=== PATIENT | male | born 1975 | race Caucasian/White ===

== ENCOUNTER 2020-11-02 14:32 | Emergency (ER) | payer BC, SELFPAY ==
[2020-11-02 14:43] VITALS: BP 136/87; PULSE 89; RESP 18; TEMP 36.8; O2SAT 100; BMI 21.2
--- NOTE | 2020-11-02 15:57 | CTR_ITS ---
PROCEDURE INFORMATION: Exam: CT Head Without Contrast Exam date and time: 11/02/2020 5:32 PM Age: 45 years old Clinical indication: Injury or trauma; Blunt trauma (contusions or hematomas); Injury details: Fall. 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 +loc; Additional info: Closed head injury TECHNIQUE: Imaging protocol: Computed tomography of the head without contrast. Radiation optimization: All CT scans at this facility use at least one of these dose optimization techniques: automated exposure control; mA and/or kV adjustment per patient size (includes targeted exams where dose is matched to clinical indication); or iterative reconstruction. COMPARISON: No relevant prior studies available. RADIATION DOSE METRICS: Total DLP (mGy-cm): 828.35 FINDINGS: Brain: Normal. No hemorrhage. Unremarkable white matter. No mass effect. Cerebral ventricles: No ventriculomegaly. Bones/joints: Unremarkable. No acute fracture. Paranasal sinuses: Visualized sinuses are unremarkable. No fluid levels. Mastoid air cells: Visualized mastoid air cells are well aerated. Soft tissues: Focal left superior scalp hematoma. CT/CT head wo con* [id number] IMPRESSION: Negative for intracranial injury. Radiation Dose CTDIVOL = (mGy): DLP = 828.35 (mGy-cm)
--- NOTE | 2020-11-02 16:09 | W.ED.SEIZURE ---
HPI - Seizure General: Chief Complaint: Seizure Stated Complaint: SEIZURE PRIOR TO ARRIVAL Time Seen by Provider: 11/02/20 15:56 History of Present Illness: HPI Narrative: 45-year-old male presents emergency room with complaint of a seizure. He stumbled twisted his ankle and fell on the ground as he fell on the ground he hit the back of his head on a piece of wood. His son was a bystander and said he had 2 seizures lasting somewhere between 1 to 3 minutes. He did bite the inside of his mouth he has no known history of previous seizures. He has been taking promethazine recently. No vomiting since this episode he does have a mild headache. MD complaint: possible seizure Onset (ago): hour(s) Description of Episode: loss of consciousness and tonic-clonic movement Witnessed: Yes - by Bystander Trauma: Yes Seizure History: No Place: Outdoors Possible Precipitating Event: head injury Associated symptoms: Deny chest pain, chills, confusion, cough, diaphoresis, fever(s), anorexia, malaise, rash, short of breath, syncope or weakness Treatments prior to arrival: none Review of Systems Const: Denies: fever(s), chills, malaise or diaphoresis ENMT: Denies: throat pain, ear or mastoid pain, nasal discharge or nasal congestion Card: Denies: chest pain or syncope Resp: Denies: dyspnea, productive cough or non-productive cough GI: Denies: abdominal pain, nausea, vomiting, hematemesis, coffee ground emesis, diarrhea, constipation, bloating, hematochezia or melena : Denies: flank pain, dysuria, urinary frequency or urinary urgency Skin/Breast: Denies: rash or pruritus Neuro: Denies: confusion Physical Exam Const: COMMON NORMALS: no acute distress GENERAL APPEARANCE: cooperative and comfortable ORIENTATION/CONSCIOUSNESS: Yes awake, Yes oriented to person, Yes oriented to place and Yes oriented to time HENMT: COMMON NORMALS: normocephalic, atraumatic, hearing grossly normal bilaterally, external ears normal, EAC's normal, TM's normal bilaterally, Normal nasal mucous membranes and turbinates present, moist oral mucous membranes and oropharynx normal HEAD & SCALP: normocephalic and atraumatic NOSE: Normal nasal mucous membranes and turbinates present EXTERNAL EAR: Yes external ears normal EXTERNAL AUDITORY CANAL: EAC's normal TYMPANIC MEMBRANE: TM's normal bilaterally Eye: COMMON NORMALS: Equal, round and reactive pupils present, EOMs intact bilaterally, conjunctivae normal and no scleral icterus CONJUNCTIVA: Yes conjunctivae normal PUPIL: Yes Equal, round and reactive pupils present Neck/C-Spine: COMMON NORMALS: no JVD Resp: COMMON NORMALS: normal respiratory effort, No retractions, No use of accessory muscles and clear to auscultation bilaterally AUSCULTATION: clear to auscultation bilaterally Cardio: COMMON NORMALS: no JVD, regular rate, regular rhythm and No murmurs present (Cardio) RATE: regular rate RHYTHM: regular rhythm GI: COMMON NORMALS: Soft to palpation and No hepatosplenomegaly present AUSCULTATION: Yes normoactive bowel sounds PALPATION: Yes Soft to palpation, No Tenderness to palpation present (GI), No Guarding due to palpation present (GI) and Yes No hepatosplenomegaly present Extremity: COMMON NORMALS: normal to inspection, capillary refill normal, no clubbing, cyanosis or edema, no calf tenderness and no pedal edema Neuro: SENSORIUM/ORIENTATION: Yes oriented to person, Yes oriented to place and Yes oriented to time Skin: COMMON NORMALS: no rashes or lesions noted GENERAL SKIN EXAM: no rashes or lesions noted Course Vital Signs: Vital signs: Vital Signs Temperature 98.3 F 11/02/20 14:43 Pulse Rate 89 11/02/20 14:43 Respiratory Rate 18 11/02/20 14:43 Blood Pressure 136/87 11/02/20 14:43 Pulse Oximetry 100 11/02/20 14:43 MDM - Seizure MDM Narrative: Medical decision making narrative: Suspect he may have had a vasovagal episode. Is possibly had a seizure after closed head injury is no history of seizures in the past we will go and discharge him home have him follow-up with his primary care physician. If he has any further symptoms return to the emergency room would require further work-up and referral to neurology. His sodium is a little bit on the low side.But he is asymptomatic of it at this time. If he were to have another seizure would consider starting antiseizure medications but in presence of a single episode we will hold off for now. Lab Data: Labs: Lab Results 11/02/20 11/02/20 11/02/20 Range/Units 15:58 15:58 18:00 WBC 9.2 (4.0-10.0) 10^3/ uL RBC 3.77 L (4.1-5.3) 10^6/u L Hgb 12.8 (11.7-16.6) g/dL Hct 37.0 L (42.0-52.0) % MCV 98.1 H (80-94) fL MCH 34.0 (28.0-34.0) pg MCHC 34.6 (30.0-36.0) g/dL RDW 12.6 (12.1-15.1) % Plt Count 187 (130-400) 10^3/c mm MPV 9.2 (7.4-10.4) fL Neut % (Auto) 78.8 % Lymph % (Auto) 8.8 % [place] % (Auto) 11.3 % Eos % (Auto) 0.0 % Baso % (Auto) 0.4 % Neut # (Auto) 7.28 (1.8-7.7) 10^3/u L Lymph # (Auto) 0.8 (0.8-4.8) 10^3/u L [place] # (Auto) 1.0 H (0.2-0.9) 10^3/u L Eos # (Auto) 0.0 (0.0-0.8) 10^3/u L Baso # (Auto) 0.0 (0.0-0.1) 10^3/u L Nucleated RBC % (a uto) 0 % Nucleated RBCs # 0.0 /100WBC Sodium 129 L (136-145) mmol/L Potassium 3.6 (3.5-5.1) mmol/L Chloride 88 L (98-107) mmol/L Carbon Dioxide 22 (22-29) mmol/L Anion Gap 22.6 H (5-19) BUN 5 L (6-20) mg/dL Creatinine 0.6 L (0.7-1.2) mg/dL GFR Calculation 145.0 H (90-130) mL/min Glucose 75 (65-115) mg/dL Calculated Osmolal ity 264 L (285-295) mOsm/k g Calcium 8.3 L (8.5-10.5) mg/dL Total Bilirubin 1.0 (0.15-1.2) mg/dL AST 151 H (0-40) U/L ALT 92 H (0-41) U/L Alkaline Phosphata se 57 (40-130) IU/L Total Protein 7.0 (6.6-8.7) g/dL Albumin 4.4 (3.5-5.2) g/dL Globulin 2.6 (1.3-4.6) g/dL Urine Color Dark yellow (Yellow) Urine Appearance Clear (CLEAR) Urine pH 5 (5-7) Ur Specific Gravit y 1.020 (1.005-1.030) Urine Protein 3+ H (Negative) Urine Glucose (UA) Norm (Normal) Urine Ketones 2+ H (Negative) Urine Blood 3+ H (Negative) Urine Nitrate Negative (Negative) Urine Bilirubin Neg (Negative) Urine Urobilinogen 1 H (Negative) mg/dL Ur Leukocyte [place] ase Negative (Negative) Urine RBC 0-4 H (0-2) /hpf Urine WBC 5-10 H (0-5) /hpf Ur Squamous Epith Cells 0-4 H (0-5) /hpf Amorphous Sediment Not Reportable Urine Bacteria Trace (NONE) /hpf Urine Mucus Trace /hpf Discharge Plan Discharge Patient Disposition: Home Clinical Impression: New onset seizure, Fall, Closed head injury Condition: Stable Prescriptions: No Action promethazine 25 mg tablet 25 mg PO Q4H PRN (Reason: Nausea And Vomiting) RF: 0 ibuprofen 200 mg Tablet 200 mg PO PRN RF: 0 levetiracetam 500 mg Tablet 500 mg PO Q12H Qty: 60 RF: 0 Thera 400 mcg Tablet 1 tab PO DAILY Qty: 30 RF: 0 Discharge Orders: Discharge ED (Routine); Ordered 11/02/20 Ordered By: Júnior Preciado Discharge Diet: Usual diet Discharge Activity: Increase activity as tolerated Patient Instructions: Opioid Safety Activity Restrictions/Additional Instructions: If you have any further symptoms return to the emergency room or follow-up with your primary care physician. 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
--- NOTE | 2020-11-02 16:10 | CTR_ITS ---
PROCEDURE INFORMATION: Exam: CT Cervical Spine Without Contrast Exam date and time: 11/02/2020 5:32 PM Age: 45 years old Clinical indication: Injury or trauma; Blunt trauma; Injury details: Fall x today. Pain; Additional info: Pain after fall TECHNIQUE: Imaging protocol: Computed tomography images of the cervical spine without contrast. Radiation optimization: All CT scans at this facility use at least one of these dose optimization techniques: automated exposure control; mA and/or kV adjustment per patient size (includes targeted exams where dose is matched to clinical indication); or iterative reconstruction. COMPARISON: No relevant prior studies available. RADIATION DOSE METRICS: Total DLP (mGy-cm): 436.72 FINDINGS: Vertebrae: No acute fracture. Normal alignment. C2-C3: No significant disc protrusion. No severe spinal canal stenosis. No significant neural foraminal narrowing. C3-C4: No significant disc protrusion. No severe spinal canal stenosis. No significant neural foraminal narrowing. C4-C5: No significant disc protrusion. No severe spinal canal stenosis. No significant neural foraminal narrowing. C5-C6: No significant disc protrusion. No severe spinal canal stenosis. No significant neural foraminal narrowing. C6-C7: No significant disc protrusion. No severe spinal canal stenosis. No significant neural foraminal narrowing. C7-T1: No significant disc protrusion. No severe spinal canal stenosis. No significant neural foraminal narrowing. Soft tissues: Unremarkable. Lungs: Lung apices are normal. CT/CT cervical spin wo con* [id number] IMPRESSION: No acute findings. Radiation Dose CTDIVOL = (mGy): DLP = 436.72 (mGy-cm)
[2020-11-02 16:15] LABS: Basophils % 0.4 %; Hemoglobin 12.8 g/dL (11.7-16.6); Lymphocytes # 0.8 10^3/uL (0.8-4.8); Lymphocytes % 8.8 %; Mean Corpuscular HGB Conc 34.6 g/dL (30.0-36.0); Mean Corpuscular Volume 98.1 fL (80-94); Mean Platelet Volume 9.2 fL (7.4-10.4); Monocytes % 11.3 %; Neutrophils # 7.28 10^3/uL (1.8-7.7); Neutrophils % 78.8 %; Nucleated Red Blood Cells % 0 %; Platelet Count 187 10^3/cmm (130-400); Red Blood Count 3.77 10^6/uL (4.1-5.3); Red Cell Distribution Width 12.6 % (12.1-15.1); White Blood Count 9.2 10^3/uL (4.0-10.0)
[2020-11-02 16:34] LABS: Alanine Aminotransferase 92 U/L (0-41); Albumin Level 4.4 g/dL (3.5-5.2); Alkaline Phosphatase 57 IU/L (40-130); Anion Gap 22.6 (5-19); Aspartate Amino Transferase 151 U/L (0-40); Blood Urea Nitrogen 5 mg/dL (6-20); Calcium 8.3 mg/dL (8.5-10.5); Carbon Dioxide 22 mmol/L (22-29); Chloride 88 mmol/L (98-107); Globulin 2.6 g/dL (1.3-4.6); Glucose 75 mg/dL (65-115); Osmolality Calculated 264 mOsm/kg (285-295); Potassium 3.6 mmol/L (3.5-5.1); Sodium 129 mmol/L (136-145)
[2020-11-02] MEDS: ibuprofen 800 mg tablet PO (16:55)
[2020-11-02 18:16] LABS: Add Urine Microscopic? YES; Bilirubin Urine Neg (Negative); Blood Urine 3+ (Negative); Glucose Urine UA Norm (Normal); Ketones Urine 2+ (Negative); Leukocyte Esterase Urine Negative (Negative); Nitrate Urine Negative (Negative); Protein Urine 3+ (Negative); Urine Appearance Clear (CLEAR); Urine Color Dark Yellow (Yellow); Urobilinogen Urine 1 mg/dL (Negative); pH Urine 5 (5-7)
[2020-11-02 18:17] LABS: Bacteria Urine TRACE /hpf; Mucus Urine TRACE /hpf; RBC Urine 0-4 /hpf (0-2); Squamous Epithelial Cell Urine 0-4 /hpf (0-5)
== END 2020-11-02 18:55 | disposition home or self-care (01) ==
PROVIDERS: Emergency Provider Family Medicine
DX: G40.89 Other seizures (principal); S09.8XXA Other specified injuries of head, initial encounter; W01.0XXA Fall on same level from slipping, tripping and stumbling without subsequent striking against object, initial encounter
CPT/HCPCS: 70450; 72125; 80053; 81001; 85025; 99283

== ENCOUNTER 2020-11-02 23:39 | Observation (INO) | payer BC, SELFPAY ==
[2020-11-02 23:46] VITALS: BP 152/87; PULSE 87; RESP 16; TEMP 36.9; O2SAT 94
--- NOTE | 2020-11-02 23:50 | CTR_ITS ---
PROCEDURE INFORMATION: Exam: CT Head Without Contrast Exam date and time: 11/02/2020 11:52 PM Age: 45 years old Clinical indication: Injury or trauma; Blunt trauma (contusions or hematomas); Injury details: Multiple seizures x today. No known history of seizures. Multiple falls x today. Hematoma to the right side of forehead; Additional info: Seizure TECHNIQUE: Imaging protocol: Computed tomography of the head without contrast. Radiation optimization: All CT scans at this facility use at least one of these dose optimization techniques: automated exposure control; mA and/or kV adjustment per patient size (includes targeted exams where dose is matched to clinical indication); or iterative reconstruction. COMPARISON: CT head wo con* [id number] 11/02/2020 5:32 PM RADIATION DOSE METRICS: Total DLP (mGy-cm): 1562.45 FINDINGS: Brain: There is mild cerebral atrophy. Negative for acute intracranial hemorrhage. No intracranial mass. No midline shift of the brain. No mass effect on the brain. Cerebral ventricles: No ventriculomegaly. Bones/joints: Unremarkable. No acute fracture. Paranasal sinuses: Visualized sinuses are unremarkable. No fluid levels. Mastoid air cells: Visualized mastoid air cells are well aerated. Orbital cavity: Orbits are symmetric. Soft tissues: Left superior scalp hematoma. Right lower frontal scalp hematoma. CT/CT head wo con* [id number] IMPRESSION: 1. Negative for intracranial hemorrhage. 2. Multifocal scalp soft tissue injuries with hematoma formation. Radiation Dose CTDIVOL = (mGy): DLP = 1562.45 (mGy-cm)
--- NOTE | 2020-11-02 23:53 | ED_ITS ---
HPI - Seizure General: Chief Complaint: Seizure Stated Complaint: SEIZURE Time Seen by Provider: 11/02/20 23:43 Source: patient Mode of arrival: ambulatory Limitations: no limitations History of Present Illness: HPI Narrative: 45-year-old male who was seen here earlier today after a seizure. Earlier he had a seizure and fell forward and struck his head had a normal head CT and has a large hematoma. He states that tonight he has had some confusion does not really remember the event and had a another seizure roughly 1 hour ago. Patient is able answer my questions appropriately but he does not really remember being here earlier. He denies any worsening improving factors. He has a mild headache currently. No history of seizures in the past. Seizure History: No Associated symptoms: Reports confusion; Deny chest pain, chills or fever(s) Review of Systems Const: Denies: fever(s), chills, body aches or change in appetite Eyes: Denies: blurry vision or eye discomfort ENMT: Denies: throat pain or dental pain Card: Denies: chest pain Resp: Denies: dyspnea GI: Denies: abdominal pain, nausea, vomiting or diarrhea : Denies: dysuria Musc: Denies: neck pain or back pain Skin/Breast: Denies: rash Neuro: Reports: confusion and seizure-like activity Psych: Denies: depression Moise/Lymph: Denies: easy bruising All/Imm: Denies: urticaria Physical Exam Const: COMMON NORMALS: no acute distress, patient oriented x3 and healthy appearing HENMT: COMMON NORMALS: normocephalic HEAD & SCALP: normocephalic OTHER: contusion to forehead with hematoma Eye: COMMON NORMALS: Equal, round and reactive pupils present and EOMs intact bilaterally PUPIL: Yes Equal, round and reactive pupils present Neck/C-Spine: COMMON NORMALS: full ROM and supple Chest: COMMONS NORMALS: normal inspection of the chest and normal palpation of entire chest wall Resp: COMMON NORMALS: normal respiratory effort, No retractions, No use of accessory muscles and clear to auscultation bilaterally AUSCULTATION: clear to auscultation bilaterally Cardio: COMMON NORMALS: regular rate, regular rhythm and No murmurs present (Cardio) RATE: regular rate RHYTHM: regular rhythm GI: COMMON NORMALS: Normal to inspection, nondistended, normoactive bowel moriah nds present, Soft to palpation, non-tender and no masses PALPATION: Yes Soft to palpation Extremity: COMMON NORMALS: normal to inspection and full ROM Neuro: COMMON NORMALS: patient oriented x3, moves all extremities and no focal motor deficits Psych: COMMON NORMALS: mental status grossly normal, Normal thought process present and cooperative THOUGHT PROCESS: Normal thought process present Skin: COMMON NORMALS: no rashes or lesions noted and no wounds GENERAL SKIN EXAM: no rashes or lesions noted Course Vital Signs: Vital signs: Vital Signs Temperature 98.4 F 11/02/20 23:46 Pulse Rate 75 11/03/20 01:53 Respiratory Rate 16 11/03/20 01:53 Blood Pressure 111/50 11/03/20 01:53 Pulse Oximetry 97 11/03/20 01:53 MDM - Seizure MDM Narrative: Medical decision making narrative: Patient presents here with 3 seizures today that is likely from a hyponatremia. His sodium level here is 126. He likely has some dehydration has been drinking on the river as well. His head CT here is normal has been mentating normally here. I spoke to the hospitalist will admit at this time. Lab Data: Labs: Lab Results 11/02/20 11/02/20 11/02/20 Range/Units 23:40 23:40 23:48 WBC 9.3 (4.0-10.0) 10^3/ uL RBC 3.41 L (4.1-5.3) 10^6/u L Hgb 11.8 (11.7-16.6) g/dL Hct 33.8 L (42.0-52.0) % MCV 99.1 H (80-94) fL MCH 34.6 H (28.0-34.0) pg MCHC 34.9 (30.0-36.0) g/dL RDW 12.7 (12.1-15.1) % Plt Count 170 (130-400) 10^3/c mm MPV 9.4 (7.4-10.4) fL Neut % (Auto) 77.4 % Lymph % (Auto) 11.3 % [place] % (Auto) 10.2 % Eos % (Auto) 0.2 % Baso % (Auto) 0.4 % Neut # (Auto) 7.16 (1.8-7.7) 10^3/u L Lymph # (Auto) 1.1 (0.8-4.8) 10^3/u L [place] # (Auto) 0.9 (0.2-0.9) 10^3/u L Eos # (Auto) 0.0 (0.0-0.8) 10^3/u L Baso # (Auto) 0.0 (0.0-0.1) 10^3/u L Nucleated RBC % (a uto) 0 % Nucleated RBCs # 0.0 /100WBC Sodium 126 L (136-145) mmol/L Potassium 3.1 L (3.5-5.1) mmol/L Chloride 85 L (98-107) mmol/L Carbon Dioxide 21 L (22-29) mmol/L Anion Gap 23.1 H (5-19) BUN 7 (6-20) mg/dL Creatinine 0.8 (0.7-1.2) mg/dL GFR Calculation 104.1 (90-130) mL/min Glucose 71 (65-115) mg/dL Calculated Osmolal ity 258 L (285-295) mOsm/k g Calcium 8.0 L (8.5-10.5) mg/dL Total Bilirubin 1.2 (0.15-1.2) mg/dL AST 121 H (0-40) U/L ALT 73 H (0-41) U/L Alkaline Phosphata se 50 (40-130) IU/L Total Protein 6.6 (6.6-8.7) g/dL Albumin 3.9 (3.5-5.2) g/dL Globulin 2.7 (1.3-4.6) g/dL Ethyl Alcohol < 10 (0-10) mg/dL EKG Data^: EKG 1: Attestation: I personally reviewed and interpreted this EKG as follows: EKG interpretation date: 11/03/20 EKG interpretation time: 23:56 Interpretation: nsr hr [address] or t wave abnormalities qrs 76 qtc 410 Discharge Plan Discharge Patient Disposition: Admitted As Inpatient Clinical Impression: New onset seizure, Closed head injury, Acute hyponatremia Condition: Stable Coding Level of Care Code 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
[2020-11-03] VITALS (10 sets, daily range): BP systolic 94–152; BP diastolic 50–87; PULSE 60–80; RESP 14–20; TEMP 36.9–37.4; O2SAT 96–100
[2020-11-03 00:19] LABS: Basophils % 0.4 %; Eosinophils % 0.2 %; Hematocrit 33.8 % (42.0-52.0); Hemoglobin 11.8 g/dL (11.7-16.6); Lymphocytes # 1.1 10^3/uL (0.8-4.8); Lymphocytes % 11.3 %; Mean Corpuscular HGB Conc 34.9 g/dL (30.0-36.0); Mean Corpuscular Hemoglobin 34.6 pg (28.0-34.0); Mean Corpuscular Volume 99.1 fL (80-94); Mean Platelet Volume 9.4 fL (7.4-10.4); Monocytes # 0.9 10^3/uL (0.2-0.9); Monocytes % 10.2 %; Neutrophils # 7.16 10^3/uL (1.8-7.7); Neutrophils % 77.4 %; Nucleated Red Blood Cells % 0 %; Platelet Count 170 10^3/cmm (130-400); Red Blood Count 3.41 10^6/uL (4.1-5.3); Red Cell Distribution Width 12.7 % (12.1-15.1); White Blood Count 9.3 10^3/uL (4.0-10.0)
[2020-11-03 00:31] LABS: Alanine Aminotransferase 73 U/L (0-41); Albumin Level 3.9 g/dL (3.5-5.2); Alkaline Phosphatase 50 IU/L (40-130); Anion Gap 23.1 (5-19); Aspartate Amino Transferase 121 U/L (0-40); Blood Urea Nitrogen 7 mg/dL (6-20); Carbon Dioxide 21 mmol/L (22-29); Chloride 85 mmol/L (98-107); Globulin 2.7 g/dL (1.3-4.6); Glomerular Filtration Rate 104.1 mL/min (90-130); Glucose 71 mg/dL (65-115); Osmolality Calculated 258 mOsm/kg (285-295); Potassium 3.1 mmol/L (3.5-5.1); Sodium 126 mmol/L (136-145); Total Bilirubin 1.2 mg/dL (0.15-1.2); Total Protein 6.6 g/dL (6.6-8.7)
[2020-11-03 01:11] LABS: Alcohol Level < 10 mg/dL (0-10)
--- NOTE | 2020-11-03 01:29 | ECG_ITS ---
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 Measurements Intervals [place] Rate: 68 P: 54 ME: 160 QRS: -62 QRSD: 76 T: 38 QT: 393 QTc: 419 Interpretive Statements SINUS RHYTHM LEFT AXIS DEVIATION [QRS AXIS < -30] POSSIBLE RIGHT VENTRICULAR CONDUCTION DELAY [RSR (QR) IN V1/V2] SEPTAL MYOCARDIAL INFARCTION , OF INDETERMINATE AGE [40+ ms Q WAVE IN V1/V2] No previous ECG available for comparison Electronically Signed On 11-03-2020 16:50:10 CDT by Regis Coleman M.D. [id number]
--- NOTE | 2020-11-03 01:38 | P.HP_ITS ---
Providers/Chief Complaint Chief Complaint: SEIZURE History of Present Illness Primo Andino is a 45 year old male with no significant past medical history who is presenting second time today with complaints of seizures. First he was seen in ER around noon. He presented with seizures. He was on the bank of the [facility] [facility] with his friends and family. Suddenly he lost consciousness, became stiff and fell into a ditch. He hit his head. In emergency room he had a swelling in the right orbital and lateral frontal region. However the CT of the head and neck were without any other acute abnormalities. The patient was discharged home. However several hours later while in the car in the backseat he was witnessed to have 2 more seizures with loss of consciousness. Each lasting about 3 minutes. Muscle shakes all over the body and saliva coming out of his mouth. The patient denies any similar episodes in the past. He and his son believe that the fall and the trauma of or related to the seizure. He also describes difficulty finding words when speaking and occasionally struggles with the conversation. However there is no dysarthria. No facial asymmetry. He denies problems with vision. He denies any focal weakness. Reports some numbness and tingling in the hands which are probably not new. He denies any dysuria, abdominal pain, nausea or vomiting, chest pain, shortness of breath, cough, palpitations. He has hemorrhoids and occasionally has blood in the stool. Denies black stools. Also he describes diarrhea up to 3 times today and yesterday. Social history. The patient drinks on a regular basis. Mostly beer. 12-16 beers a day. Smokes marijuana. Denies any other drugs. Family history. Negative for seizures Review of Systems General: Reports: 10 or more systems reviewed and unremarkable except in HPI and below Medications/Allergies Home Medications Medication Instructions Recorded Confirmed Last Taken Type acetaminophen [Tylenol Extra 500 mg PO PRN 11/02/20 11/02/20 Unknown History Strength] ciprofloxacin HCl 500 mg PO BID 11/02/20 11/02/20 11/01/20 History ibuprofen 200 mg PO PRN 11/02/20 11/02/20 Unknown History promethazine 25 mg PO Q4H PRN 11/02/20 11/02/20 11/02/20 12:00 History Allergies Allergy/AdvReac Type Severity Reaction Status Date / Time No Known Allergies Allergy Verified 05/21/21 23:50 Vitals/I&O/Wt Last Vital Signs Temp 98.4 F 11/02/20 23:46 Pulse 72 11/03/20 00:39 Resp 20 H 11/03/20 00:39 BP 152/87 11/03/20 00:39 Pulse Ox 96 11/03/20 00:39 Weight last 48 hrs Weight 59.874 kg Physical Exam Narrative: EXAM NARRATIVE: Currently the patient is awake and alert. Oriented x4. No acute distress. As mentioned above occasionally struggles finding words in conversation and occasionally stutters. No muscle twitches or convulsions at this point. Some evidence of retrograde amnesia is present. Skin is warm and dry. Head. Large bruise and swelling in the upper right orbital region and lateral for head. No active bleeding. Eyes PERRL, extraocular muscles are intact. No facial asymmetry. Cranial nerves II through XII seem to be intact. Neck is supple. No JVD. Nontender. Lungs are clear to auscultation bilaterally. No respiratory distress Heart S1, S2, regular Abdomen soft, nontender, bowel sounds are present Extremities no edema cyanosis or calf tenderness bilaterally No focal weakness. Data : 11/02/20 23:40 11/02/20 23:40 Other Labs: Laboratory Results WBC 9.3 10^3/uL (4.0-10.0) 11/02/20 23:40 RBC 3.41 10^6/uL (4.1-5.3) L 11/02/20 23:40 Hgb 11.8 g/dL (11.7-16.6) 11/02/20 23:40 Hct 33.8 % (42.0-52.0) L 11/02/20 23:40 MCV 99.1 fL (80-94) H 11/02/20 23:40 MCH 34.6 pg (28.0-34.0) H 11/02/20 23:40 MCHC 34.9 g/dL (30.0-36.0) 11/02/20 23:40 RDW 12.7 % (12.1-15.1) 11/02/20 23:40 Plt Count 170 10^3/cmm (130-400) 11/02/20 23:40 MPV 9.4 fL (7.4-10.4) 11/02/20 23:40 Neut % (Auto) 77.4 % 11/02/20 23:40 Lymph % (Auto) 11.3 % 11/02/20 23:40 Casey % (Auto) 10.2 % 11/02/20 23:40 Eos % (Auto) 0.2 % 11/02/20 23:40 Baso % (Auto) 0.4 % 11/02/20 23:40 Neut # (Auto) 7.16 10^3/uL (1.8-7.7) 11/02/20 23:40 Lymph # (Auto) 1.1 10^3/uL (0.8-4.8) 11/02/20 23:40 Casey # (Auto) 0.9 10^3/uL (0.2-0.9) 11/02/20 23:40 Eos # (Auto) 0.0 10^3/uL (0.0-0.8) 11/02/20 23:40 Baso # (Auto) 0.0 10^3/uL (0.0-0.1) 11/02/20 23:40 Nucleated RBC % (auto) 0 % 11/02/20 23:40 Nucleated RBCs # 0.0 /100WBC 11/02/20 23:40 Sodium 126 mmol/L (136-145) L 11/02/20 23:40 Potassium 3.1 mmol/L (3.5-5.1) L 11/02/20 23:40 Chloride 85 mmol/L (98-107) L 11/02/20 23:40 Carbon Dioxide 21 mmol/L (22-29) L 11/02/20 23:40 Anion Gap 23.1 (5-19) H 11/02/20 23:40 BUN 7 mg/dL (6-20) 11/02/20 23:40 Creatinine 0.8 mg/dL (0.7-1.2) 11/02/20 23:40 GFR Calculation 104.1 mL/min (90-130) 11/02/20 23:40 Glucose 71 mg/dL (65-115) 11/02/20 23:40 Calculated Osmolality 258 mOsm/kg (285-295) L 11/02/20 23:40 Calcium 8.0 mg/dL (8.5-10.5) L 11/02/20 23:40 Total Bilirubin 1.2 mg/dL (0.15-1.2) 11/02/20 23:40 AST 121 U/L (0-40) H 11/02/20 23:40 ALT 73 U/L (0-41) H 11/02/20 23:40 Alkaline Phosphatase 50 IU/L (40-130) 11/02/20 23:40 Total Protein 6.6 g/dL (6.6-8.7) 11/02/20 23:40 Albumin 3.9 g/dL (3.5-5.2) 11/02/20 23:40 Globulin 2.7 g/dL (1.3-4.6) 11/02/20 23:40 Ethyl Alcohol < 10 mg/dL (0-10) 11/02/20 23:[address] 11/02/20 23:50 IMPRESSION: 1. Negative for intracranial hemorrhage. 2. Multifocal scalp soft tissue injuries with hematoma formation. Radiation Dose CTDIVOL = (mGy): DLP = 1562.45 (mGy-cm) A&P Additional A&P Information 45-year-old male with no significant past medical history, regular use of alcohol and marijuana who presents with 3 episodes of seizures for last 24 hours. The patient fell after the first event. No fractures but he has a large bruise and swelling on the cranium. Associated hyponatremia, dehydration, hypokalemia, elevated LFTs. Possible UTI. Seizures. Has problems with speech. Most likely was triggered by dehydration and alcohol intoxication. We will go ahead and order MRI of the brain. We will continue Keppra and as needed lorazepam. Seizure and fall precautions. EtOH. No evidence of withdrawals at this time. However high risk for that. Will start thiamine replacement and CIWA protocol. Hyponatremia. Probably multifactorial including dehydration, beer portal santy, liver disease. We will hydrate with normal saline and monitor. We will try to avoid rapid correction. Hypokalemia. Will replace and monitor. He will also receive magnesium sulfate. Elevated LFTs most likely secondary to EtOH. Will monitor. Long-term monitoring and additional management after discharge. Reported hemorrhoids and occasional rectal bleeding. We will monitor his H&H. GI prophylaxis. Possible UTI. Rocephin. CODE STATUS. He wants to be full code. The plan of care was discussed with the patient and his son. They verbalized understanding and agreement Attestations Medical Necessity Statement*: Observation Coding Level of Care Code Acute Water Resource Manager for [facility] Avalos
[2020-11-03] MEDS: famotidine 20 mg/2 mL INJ IVP ×2 (01:50→13:56)
[2020-11-03] MEDS: sodium chloride 0.9% 1,000 ML 999 ML IV (01:51)
[2020-11-03] MEDS: cefTRIAXone 1,000 MG in sodium chloride 0.9% (plus) 50 ML 100 MG IV (01:52)
--- NOTE | 2020-11-03 02:28 | PC.NURSE ---
patient confused and pulled IV out and took off all monitoring devices.
[2020-11-03 02:48] LABS: Amphetamines Screen Urine Negative (Negative); Barbiturates Screen Urine Negative (Negative); Benzodiazepines Screen Urine Negative (Negative); Cocaine Screen Urine Negative (Negative); Opiate Screen Urine Negative (Negative); PCP Screen Urine Negative (Negative); THC Screen Urine Positive (Negative)
[2020-11-03] MEDS: sodium chlor 0.9% + KCl 20 mEq 20 MEQ/1,000 ML BAG 100 MEQ IV (02:56)
--- NOTE | 2020-11-03 03:17 | PC.NURSE ---
pt pulled IV and ECG leads off, sitter request made
[2020-11-03] MEDS: levETIRAcetam 500 mg Tablet PO ×2 (04:52→15:42)
[2020-11-03] MEDS: potassium chloride premix 100 ML 25 MEQ IV (05:28)
[2020-11-03 08:04] LABS: Anion Gap 21.5 (5-19); Blood Urea Nitrogen 5 mg/dL (6-20); Calcium 7.7 mg/dL (8.5-10.5); Carbon Dioxide 21 mmol/L (22-29); Chloride 96 mmol/L (98-107); Glucose 64 mg/dL (65-115); Osmolality Calculated 275 mOsm/kg (285-295); Potassium 3.5 mmol/L (3.5-5.1); Sodium 135 mmol/L (136-145)
[2020-11-03] MEDS: folic acid 1 mg Tablet PO (08:45)
[2020-11-03] MEDS: thiamine 100 mg Tablet PO (08:45)
[2020-11-03] MEDS: multivitamin therapeutic Tablet 1 TAB PO (08:45)
--- NOTE | 2020-11-03 12:41 | PC.NURSE ---
Pt said his tongue pain level was at a 10, his back was at a 5, and his face was at an 8. Pain medication was offered and pt refused. Thank you
[2020-11-03 12:59] LABS: Alanine Aminotransferase 63 U/L (0-41); Albumin Level 3.7 g/dL (3.5-5.2); Alkaline Phosphatase 47 IU/L (40-130); Aspartate Amino Transferase 101 U/L (0-40); Globulin 2.6 g/dL (1.3-4.6); Total Protein 6.3 g/dL (6.6-8.7)
[2020-11-03 13:10] LABS: Gamma Glutamyl Transferase 252 U/L (8-61)
[2020-11-03 13:14] LABS: HIV 1 & 2 Antibody Non-Reactive (Non-Reactiv); HIV 1 & 2 Antigen Non-Reactive (Non-Reactiv)
[2020-11-03 13:23] LABS: Hepatitis A Antibody IgM Non-Reactive (Nonreactive); Hepatitis B Core AB, Total Non-Reactive (Nonreactive); Hepatitis B Surface Antigen Non-Reactive (Nonreactive); Hepatitis C Virus Antibody Non-Reactive (Nonreactive)
[2020-11-03 13:24] LABS: Hepatitis B Surface AB < 3.5 (11.5-1000)
[2020-11-03 13:50] LABS: Estmated Average Glucose 74; Hemoglobin A1C 4.2 % (4.0-6.0)
[2020-11-03 13:53] LABS: INR 0.93 (0.8-1.2)
--- NOTE | 2020-11-03 14:51 | P.DS_ITS ---
Discharge Providers Date of Admission: 11/03/20 03:51 Date of Discharge: November 03, 2020 Attending Provider at Admission: Danyel [place] Attending Provider at Discharge: Daniel Harris MD Reason for Visit Reason for Visit: SEIZURE Hospital Course Hospital Course 45 old gentleman with no segment past medical history originally from [place] visiting [place] to attend a family who presented second time yesterday for seizures. First he was seen in ER around noon. He presented with seizures. He was [place] the [place] of the [employer] [place] with his friends and family. Suddenly he lost conscio usness, became stiff and fell into a ditch. He hit his head. In emergency room he had a swelling in the right orbital and lateral frontal region. However the CT of the head and neck were without any other acute abnormalities. The patient was discharged home. However several hours later while in the car in the backseat he was witnessed to have 2 more seizures with loss of consciousness. Each lasting about 3 minutes. Muscle shakes all over the body and saliva coming out of his mouth. The patient denies any similar episodes in the past. On further interview with the patient he states he drinks on a regular basis. He usually drinks 6 to 10 cans of beer every day. Smokes marijuana denies any recreational drugs. He does not have any family history of seizures. He denies any recent changes in medication or use or document of marijuana recently. On examination in the ER his blood work showed hyponatremia, drug screen negative, negative alcohol. CT head done in the ER was negative for any acute pathology. Patient was admitted to the hospital for further monitoring. In hospital patient did not have any further episodes of seizures. He was started on anticonvulsant medication to which he tolerated well. MRI was ordered but could not be done as MRI is unavailable over the weekend and patient did not want to wait till Thursday for the MRI. It is quite possible that patient seizure is most likely from either alcohol withdrawal seizure versus dehydration causing worsening of alcohol withdrawal. Patient has been counseled in detail for need to follow-up with a neurologist, continue taking anticonvulsant medication and spoke in detail regarding need of alcohol abstinence. Patient stated he will continue taking medication and follow-up with neurologist as soon as possible. He understands he needs MRI but does not want to wait till Thursday for the same. He is been discharged in hemodynamically stable condition. Physical Exam Narrative: EXAM NARRATIVE: Currently the patient is awake and alert. Oriented x4. No acute distress. No muscle twitches or convulsions at this point. Some evidence of retrograde amnesia is present. Skin is warm and dry. Head. Large bruise and swelling in the upper right orbital region and lateral for head. No active bleeding. Eyes PERRL, extraocular muscles are intact. No facial asymmetry. Cranial nerves II through XII seem to be intact. Neck is supple. No JVD. Nontender. Lungs are clear to auscultation bilaterally. No respiratory distress Heart S1, S2, regular Abdomen soft, nontender, bowel sounds are present Extremities no edema cyanosis or calf tenderness bilaterally No focal weakness. Discharge Data Data Completed and Pending: Completed Studies During Hospitalization Category Date Time Status CT head wo con* [id number] Urgent Cat Scan 11/02/20 23:50 Completed Pending at discharge Category Date Time Status Complete Blood Co unt w/Auto AM LABS Lab 11/04/20 04:00 Ordered Magnesium AM LABS Lab 11/04/20 04:00 Ordered Magnesium Routine Lab 11/03/20 01:29 Ordered Phosphorus AM LAB S Lab 11/04/20 04:00 Ordered Urine Culture Rou marcelo Lab 11/03/20 02:15 Received MR head wo/w con [id number] Urgent MRI 11/03/20 01:36 Ordered US liver [id number] Ro utine Ultrasound 11/04/20 07:00 Ordered Labs from last 24 hours 11/03/20 11/03/20 11/03/20 13:30 07:35 07:35 WBC RBC Hgb Hct MCV MCH MCHC RDW Plt Count MPV Neut % (Auto) Lymph % (Auto) Clinch % (Auto) Eos % (Auto) Baso % (Auto) Neut # (Auto) Lymph # (Auto) Clinch # (Auto) Eos # (Auto) Baso # (Auto) Nucleated RBC % (a uto) Nucleated RBCs # PT 12.80 INR 0.93 Sodium Potassium Chloride Carbon Dioxide Anion Gap BUN Creatinine GFR Calculation Glucose Estimat Average Gl ucose Hemoglobin A1c Calculated Osmolal ity Calcium Total Bilirubin Direct Bilirubin GGT 252 H AST ALT Alkaline Phosphata se Total Protein Albumin Globulin Urine Opiates Scre en Ur Barbiturates Sc reen Ur Phencyclidine S crn Ur Amphetamines Sc reen U Benzodiazepines Scrn Urine Cocaine Scre en U Marijuana (THC) Screen Ethyl Alcohol Hepatitis A IgM Ab Hep Bs Antigen Hep Bs Antibody Hep B Core Total A b Hepatitis C Antibo dy HIV 1&2 Ab & HIV 1 Ag Non-reactive HIV 1&2 Antibody Non-reactive 11/03/20 11/03/20 11/03/20 07:35 07:35 07:35 WBC RBC Hgb Hct MCV MCH MCHC RDW Plt Count MPV Neut % (Auto) Lymph % (Auto) Clinch % (Auto) Eos % (Auto) Baso % (Auto) Neut # (Auto) Lymph # (Auto) Clinch # (Auto) Eos # (Auto) Baso # (Auto) Nucleated RBC % (a uto) Nucleated RBCs # PT INR Sodium Cancelled 135 L Potassium Cancelled 3.5 Chloride Cancelled 96 L Carbon Dioxide Cancelled 21 L Anion Gap Cancelled 21.5 H BUN Cancelled 5 L Creatinine Cancelled 0.6 L GFR Calculation Cancelled 145.0 H Glucose Cancelled 64 L Estimat Average Gl ucose Hemoglobin A1c Calculated Osmolal ity Cancelled 275 L Calcium Cancelled 7.7 L Total Bilirubin 1.0 Direct Bilirubin 0.40 H GGT AST 101 H ALT 63 H Alkaline Phosphata se 47 Total Protein 6.3 L Albumin 3.7 Globulin 2.6 Urine Opiates Scre en Ur Barbiturates Sc reen Ur Phencyclidine S crn Ur Amphetamines Sc reen U Benzodiazepines Scrn Urine Cocaine Scre en U Marijuana (THC) Screen Ethyl Alcohol Hepatitis A IgM Ab Non-reactive Hep Bs Antigen Non-reactive Hep Bs Antibody < 3.5 L Hep B Core Total A b Non-reactive Hepatitis C Antibo dy Non-reactive HIV 1&2 Ab & HIV 1 Ag HIV 1&2 Antibody 11/03/20 11/02/20 11/02/20 02:15 23:48 23:40 WBC RBC Hgb Hct MCV MCH MCHC RDW Plt Count MPV Neut % (Auto) Lymph % (Auto) Clinch % (Auto) Eos % (Auto) Baso % (Auto) Neut # (Auto) Lymph # (Auto) Clinch # (Auto) Eos # (Auto) Baso # (Auto) Nucleated RBC % (a uto) Nucleated RBCs # PT INR Sodium Potassium Chloride Carbon Dioxide Anion Gap BUN Creatinine GFR Calculation Glucose Estimat Average Gl ucose 74 Hemoglobin A1c 4.2 Calculated Osmolal ity Calcium Total Bilirubin Direct Bilirubin GGT AST ALT Alkaline Phosphata se Total Protein Albumin Globulin Urine Opiates Scre en Negative Ur Barbiturates Sc reen Negative Ur Phencyclidine S crn Negative Ur Amphetamines Sc reen Negative U Benzodiazepines Scrn Negative Urine Cocaine Scre en Negative U Marijuana (THC) Screen Positive H Ethyl Alcohol < 10 Hepatitis A IgM Ab Hep Bs Antigen Hep Bs Antibody Hep B Core Total A b Hepatitis C Antibo dy HIV 1&2 Ab & HIV 1 Ag HIV 1&2 Antibody 11/02/20 11/02/20 23:40 23:40 WBC 9.3 RBC 3.41 L Hgb 11.8 Hct 33.8 L MCV 99.1 H MCH 34.6 H MCHC 34.9 RDW 12.7 Plt Count 170 MPV 9.4 Neut % (Auto) 77.4 Lymph % (Auto) 11.3 Clinch % (Auto) 10.2 Eos % (Auto) 0.2 Baso % (Auto) 0.4 Neut # (Auto) 7.16 Lymph # (Auto) 1.1 Clinch # (Auto) 0.9 Eos # (Auto) 0.0 Baso # (Auto) 0.0 Nucleated RBC % (a uto) 0 Nucleated RBCs # 0.0 PT INR Sodium 126 L Potassium 3.1 L Chloride 85 L Carbon Dioxide 21 L Anion Gap 23.1 H BUN 7 Creatinine 0.8 GFR Calculation 104.1 Glucose 71 Estimat Average Gl ucose Hemoglobin A1c Calculated Osmolal ity 258 L Calcium 8.0 L Total Bilirubin 1.2 Direct Bilirubin GGT AST 121 H ALT 73 H Alkaline Phosphata se 50 Total Protein 6.6 Albumin 3.9 Globulin 2.7 Urine Opiates Scre en Ur Barbiturates Sc reen Ur Phencyclidine S crn Ur Amphetamines Sc reen U Benzodiazepines Scrn Urine Cocaine Scre en U Marijuana (THC) Screen Ethyl Alcohol Hepatitis A IgM Ab Hep Bs Antigen Hep Bs Antibody Hep B Core Total A b Hepatitis C Antibo dy HIV 1&2 Ab & HIV 1 Ag HIV 1&2 Antibody Addt'l Data from Hospital Stay: Laboratory Results WBC 9.3 10^3/uL (4.0- 10.0) 11/02/20 23:40 RBC 3.41 10^6/uL (4.1 -5.3) L 11/02/20 23:40 Hgb 11.8 g/dL (11.7-1 6.6) 11/02/20 23:40 Hct 33.8 % (42.0-52.0 ) L 11/02/20 23:40 MCV 99.1 fL (80-94) H 11/02/20 23:40 MCH 34.6 pg (28.0-34. 0) H 11/02/20 23:40 MCHC 34.9 g/dL (30.0-3 6.0) 11/02/20 23:40 RDW 12.7 % (12.1-15.1 ) 11/02/20 23:40 Plt Count 170 10^3/cmm (130 -400) 11/02/20 23:40 MPV 9.4 fL (7.4-10.4) 11/02/20 23:40 Neut % (Auto) 77.4 % 11/02/20 23:40 Lymph % (Auto) 11.3 % 11/02/20 23:40 Clinch % (Auto) 10.2 % 11/02/20 23:40 Eos % (Auto) 0.2 % 11/02/20 23:40 Baso % (Auto) 0.4 % 11/02/20 23:40 Neut # (Auto) 7.16 10^3/uL (1.8 -7.7) 11/02/20 23:40 Lymph # (Auto) 1.1 10^3/uL (0.8- 4.8) 11/02/20 23:40 Clinch # (Auto) 0.9 10^3/uL (0.2- 0.9) 11/02/20 23:40 Eos # (Auto) 0.0 10^3/uL (0.0- 0.8) 11/02/20 23:40 Baso # (Auto) 0.0 10^3/uL (0.0- 0.1) 11/02/20 23:40 Nucleated RBC % (a uto) 0 % 11/02/20 23:40 Nucleated RBCs # 0.0 /100WBC 11/02/20 23:40 PT 12.80 SECONDS (12 .1-14.9) 11/03/20 13:30 INR 0.93 (0.8-1.2) 11/03/20 13:30 Sodium 135 mmol/L (136-1 45) L 11/03/20 07:35 Sodium Cancelled 11/03/20 07:35 Potassium 3.5 mmol/L (3.5-5 .1) 11/03/20 07:35 Potassium Cancelled 11/03/20 07:35 Chloride 96 mmol/L (98-107 ) L 11/03/20 07:35 Chloride Cancelled 11/03/20 07:35 Carbon Dioxide 21 mmol/L (22-29) L 11/03/20 07:35 Carbon Dioxide Cancelled 11/03/20 07:35 Anion Gap 21.5 (5-19) H 11/03/20 07:35 Anion Gap Cancelled 11/03/20 07:35 BUN 5 mg/dL (6-20) L 11/03/20 07:35 BUN Cancelled 11/03/20 07:35 Creatinine 0.6 mg/dL (0.7-1. 2) L 11/03/20 07:35 Creatinine Cancelled 11/03/20 07:35 GFR Calculation 145.0 mL/min (90- 130) H 11/03/20 07:35 GFR Calculation Cancelled 11/03/20 07:35 Glucose 64 mg/dL (65-115) L 11/03/20 07:35 Glucose Cancelled 11/03/20 07:35 Estimat Average Gl ucose 74 11/02/20 23:40 Hemoglobin A1c 4.2 % (4.0-6.0) 11/02/20 23:40 Calculated Osmolal ity 275 mOsm/kg (285- 295) L 11/03/20 07:35 Calculated Osmolal ity Cancelled 11/03/20 07:35 Calcium 7.7 mg/dL (8.5-10 .5) L 11/03/20 07:35 Calcium Cancelled 11/03/20 07:35 Total Bilirubin 1.0 mg/dL (0.15-1 .2) 11/03/20 07:35 Direct Bilirubin 0.40 mg/dL (0.00- 0.30) H 11/03/20 07:35 GGT 252 U/L (8-61) H 11/03/20 07:35 AST 101 U/L (0-40) H 11/03/20 07:35 ALT 63 U/L (0-41) H 11/03/20 07:35 Alkaline Phosphata se 47 IU/L (40-130) 11/03/20 07:35 Total Protein 6.3 g/dL (6.6-8.7 ) L 11/03/20 07:35 Albumin 3.7 g/dL (3.5-5.2 ) 11/03/20 07:35 Globulin 2.6 g/dL (1.3-4.6 ) 11/03/20 07:35 Urine Opiates Scre en Negative ng/mL (N egative) 11/03/20 02:15 Ur Barbiturates Sc reen Negative ng/mL (N egative) 11/03/20 02:15 Ur Phencyclidine S crn Negative ng/mL (N egative) 11/03/20 02:15 Ur Amphetamines Sc reen Negative ng/mL (N egative) 11/03/20 02:15 U Benzodiazepines Scrn Negative ng/mL (N egative) 11/03/20 02:15 Urine Cocaine Scre en Negative ng/mL (N egative) 11/03/20 02:15 U Marijuana (THC) Screen Positive ng/mL (N egative) H 11/03/20 02:15 Ethyl Alcohol < 10 mg/dL (0-10) 11/02/20 23:48 Hepatitis A IgM Ab Non-reactive (No nreactive) 11/03/20 07:35 Hep Bs Antigen Non-reactive (No nreactive) 11/03/20 07:35 Hep Bs Antibody < 3.5 (11.5-1000 ) L 11/03/20 07:35 Hep B Core Total A b Non-reactive (No nreactive) 11/03/20 07:35 Hepatitis C Antibo dy Non-reactive (No nreactive) 11/03/20 07:35 HIV 1&2 Ab & HIV 1 Ag Non-reactive (No n-Reactiv) 11/03/20 07:35 HIV 1&2 Antibody Non-reactive (No n-Reactiv) 11/03/20 07:[address] 11/02/20 23:50 IMPRESSION: 1. Negative for intracranial hemorrhage. 2. Multifocal scalp soft tissue injuries with hematoma formation. Radiation Dose CTDIVOL = (mGy): DLP = 1562.45 (mGy-cm) Vitals: Last Vital Signs Temp 98.4 F 11/03/20 11:45 Pulse 80 11/03/20 11:45 Resp 16 11/03/20 11:45 BP 104/70 11/03/20 11:45 Pulse Ox 98 11/03/20 11:45 Discharge Plan Discharge Patient Disposition: Home Condition: Stable Prescriptions: New levetiracetam 500 mg Tablet 500 mg PO Q12H Qty: 60 RF: 0 multivitamin with folic acid [Thera] 400 mcg Tablet 1 tab PO DAILY Qty: 30 RF: 0 Continued promethazine 25 mg tablet 25 mg PO Q4H PRN (Reason: Nausea And Vomiting) RF: 0 ibuprofen 200 mg Tablet 200 mg PO PRN RF: 0 Discontinued ciprofloxacin HCl 500 mg tablet 500 mg PO BID RF: 0 Discharge Orders: Discharge Order (Routine); Ordered 11/03/20 Ordered By: Daniel Harris Referrals: Genesis Sahu MD [Physician] - 2 weeks Discharge Diet: Regular Discharge Activity: Resume usual activity Patient Instructions: Opioid Safety Discharge Attestations Time Spent in Discharge Care*: greater than 30 min Specific Discharge Activities: educating patient, discussing with field nurse case manager/social workers/dc planners, documenting/other paperwork and evaluating patient/reviewing data Status at Discharge: Cognitive status at discharge: cognitively intact , Behavioral status at discharge: cooperative , Functional status at discharge: independent ambulation Overall status at discharge: patient is back to baseline Quality Metrics Clinical Quality Measures During this hospital stay, did patient experience: None Coding Level of Care Code Acute [facility] DC note
[2020-11-03 16:47] LABS: Magnesium 2.1 mg/dL (1.7-2.3)
--- NOTE | 2020-11-03 18:15 | PC.NURSE ---
Pt left clothing articles hanging in the bathroom and a cup. Called pt and let him know they were here, he thought it was a sales call and hung up the phone. Called the pt's and informed her, she call her son and son will come chicken picker in morning. Thank you
== END 2020-11-03 17:02 | disposition home or self-care (01) ==
LOC: ER 11-03 01:10 → MEDSURG 11-03 07:37
PROVIDERS: Admitting Provider Internal Medicine; Emergency Provider Emergency Medicine; Visit Provider Student in an Organized Health Care Education/Training Program
DX: R56.9 Unspecified convulsions (principal); Z91.81 History of falling; S00.93XA Contusion of unspecified part of head, initial encounter; W19.XXXA Unspecified fall, initial encounter; E86.0 Dehydration; E87.1 Hypo-osmolality and hyponatremia; E87.6 Hypokalemia
CPT/HCPCS: 36415; 70450; 80048; 80053; 80076; 80306; 80307; 82977; 83036; 83735; 85025; 85610; 86705; 86706; 86709; 86803; 87086; 87340; 87806; 93005; 96365; 96366; 96367; 96372; 96375; 97161; 97165; 99285; G0378; J0696; J1953; J3411; J3475; J3480; J3490; J7030